=== PATIENT | male | born 1960 | race Asian ===

== ENCOUNTER 2019-11-24 23:35 | Emergency (ER) | payer SELFPAY ==
[~2019-11-24] VITALS: Ht 170.2 cm; Wt 117.0 kg
[2019-11-25] MEDS ORDERED: ONDANSETRON HCL 4MG/2ML INJ IV STA (00:27)
[2019-11-25] MEDS ORDERED: SODIUM CHLORIDE 0.9% 1,000 ML IV ONE (00:27)
[2019-11-25] MEDS ORDERED: MAGNESIUM/ALUMINUM HYDROXIDE/SIMETHICONE 30ML UDC PO ONE (00:30)
[2019-11-25] MEDS ORDERED: VISCOUS LIDOCAINE 2% 15 ML UDC PO ONE (00:30)
[2019-11-25 01:18] LABS: CHLORIDE 107 mEq/L (98-107)
[2019-11-25 01:26] LABS: BASOPHILS % 0.3 % (0.0-2.0); HEMATOCRIT. 43.8 % (42.0-52.0); HEMOGLOBIN. 14.7 g/dL (14.0-18.0); MEAN CORPUSCULAR HEMOGLOBIN 29.8 pg (28.0-32.0); MEAN CORPUSCULAR VOLUME 88.4 fL (80.0-94.0); MEAN PLATELET VOLUME 9.6 fl (7.4-10.4); MONOCYTES % 9.9 % (2.0-8.0); NEUTROPHILS % 56.8 % (40.0-76.0); PLATELET 146 x1000/uL (130-400); RED BLOOD CELL COUNT 4.95 mill/uL (4.7-6.1); RED CELL DISTRIBUTION WIDTH 13.4 % (11.6-14.6)
[2019-11-25] MEDS: MORPHINE SULFATE 2 MG/ML CPJ (NOT FOR IM USE) IV ONE ×2 (01:45→02:00)
[2019-11-25] MEDS ORDERED: KETOROLAC 30MG/ML VIAL IV ONE (01:45)
[2019-11-25 03:30] VITALS: BP 106/59
== END 2019-11-25 04:24 | disposition home or self-care (01) ==
LOC: ER 23:35
DX: K85.90 Acute pancreatitis without necrosis or infection, unspecified (principal); K42.9 Umbilical hernia without obstruction or gangrene; F17.210 Nicotine dependence, cigarettes, uncomplicated; Z90.49 Acquired absence of other specified parts of digestive tract; Z88.0 Allergy status to penicillin
CPT/HCPCS: 36415; 71045; 74176; 80053; 83690; 83880; 84484; 85025; 93005; 96374; 96375; 99284; J1885; J2270; J2405; J7030